=== PATIENT | female | born 1975 | race African-American/Black ===

== ENCOUNTER 2024-05-01 04:57 | Day surgery (SDC) | payer OTHER ==
[2024-04-24 15:09] VITALS: BMI 29.9
[2024-05-01 10:33] VITALS: TEMP 97.7
[2024-05-01 10:59] VITALS: BP 121/86; PULSE 71; RESP 16
== END 2024-05-01 11:12 | disposition home or self-care (01) ==
LOC: JASU-ENDO 04:57
PROVIDERS: ATTEND Internal Medicine Gastroenterology
PROC: 0DJD8ZZ Inspection of Lower Intestinal Tract, Via Natural or Artificial Opening Endoscopic (ICD-10-PCS; principal; 2024-05-01 09:30)
DX: Z12.11 Encounter for screening for malignant neoplasm of colon (principal)
CPT/HCPCS: 81025